=== PATIENT | male | born 1955 | race Caucasian/White ===

== ENCOUNTER 2020-11-13 18:34 | Emergency (ER) | payer BC, SELFPAY ==
[2020-11-13 18:35] VITALS: BP 155/97; PULSE 97; RESP 20; TEMP 36; O2SAT 97; BMI 30.8
[2020-11-13 18:39] VITALS: BMI 25.8
--- NOTE | 2020-11-13 18:39 | XR_ITS ---
PROCEDURE: XR HAND RT MIN 3V CLINICAL INDICATION: injury Pain COMPARISON: No exams were available for comparison FINDINGS: There is a nondisplaced fracture involving distal shaft of the 5th metacarpal with minimal radial angulation of the distal fracture fragment. The joint spaces are well-preserved. No significant degenerative/arthritic changes. No erosive changes evident. 8 mm lucent lesion is present involving the distal phalanx of the thumb along the volar and medial aspect with osteoarthritic change of the interphalangeal joint. IMPRESSION: 1. Nondisplaced fracture 5th metacarpal 2. Cystic lesion of the distal phalanx of the thumb. Follow-up suggested to confirm stability Dictated by: Denny Bliss MD 11/14/2020 05:38 Denny Bliss MD in [place] 11/14/2020 05:38
--- NOTE | 2020-11-13 18:57 | HMH.EDUTC ---
[facility] [place] Disposition Clinical Impression: Fracture of fifth metacarpal bone Qualifiers: Encounter type: initial encounter Fracture type: closed Metacarpal location: unspecified portion of metacarpal Fracture alignment: nondisplaced Laterality: right Qualified Code(s): S62.306A - Unspecified fracture of fifth metacarpal bone, right hand, initial encounter for closed fracture Disposition: Home, Self-Care Condition on Discharge: Good Instructions: How To Perform RICE (Rest, Ice, Compress, Elevate), Ibuprofen Additional Instructions: *RICE, Rest the extremity, Ice 15-20 minutes 3-4 times daily, Compress- wear the justin wrap as discussed as much as possible to help reduce swelling and pain, Elevate the extremity when at rest * is for support and help control swelling, use it except in the shower. Be sure that is not to tight but not to loose either *Elevate when resting *Ibuprofen 600-800mg every 6-8 hours as needed for pain an inflammation. If need something more can take Tylenol in between doses of Ibuprofen to help Immediately follow up with your family doctor for new or worsening of symptoms, or no noticeable improvement over the next 3-5 days Prescriptions: Ibuprofen [Ibuprofen 800mg Tablet] 800 mg PO TIDP PRN #30 tab PRN Reason: Moderate Pain Transmission Status: Pending to [facility] Referrals: PCP,No [Primary Care Provider] - As needed David Pierce MD [Staff Physician] - As needed (Call tomorrow for appointment) Time of Disposition: 20:01 Medical Decision Making - Nico Inquiry Pt receiving controlled substance: No Nico was queried for this patient: No Vital Signs: 11/13/20 18:35 Temperature 96.8 F L Temperature Source Temporal Artery Scan Pulse Rate [Left Brachial] 97 H Respiratory Rate 20 Blood Pressure [Left Arm] 155/97 H Blood Pressure Mean [Left Arm] 116 Blood Pressure Source [Left Arm] Automatic Cuff Blood Pressure Position [Left Arm] Sitting 02 Sat by Pulse Oximetry 97 Oxygen Delivery Method Room Air Orders (Tests/Meds): ORDERS Category Date Time Status Hand XR right minimum 3 views [XR hand RT min 3V] Stat Exams 11/13/20 18:39 Taken - Radiology Data #1 Image(s): Hand Image Reviewed: Yes I reviewed the patient's radiology image Fracture in 5th metacarpal - Physician Consults Physician Consulted: Stan Time: 19:05 Reason -: Orthopedic Eval/Care Comment/Response: Dr Pierce paged awaiting call back, Spoke with Dr Pierce he advised ulnar gutter splint, RICE NSAids and call his office in the morning for appointment Medical Decision Narrative: Spoke with pharmacy about medication patient state that he has taken Ibuprofen without complications or reactions [facility] HPI - General Stated complaint: possibly dislocated/injured R hand Time Seen by Provider: 11/13/20 18:57 Mode of Arrival: Ambulatory Source of Information: Patient, Spouse Limitations: No Limitations Description of Symptoms (Recalled from Triage Doc. by RN): PATIENT C/O INJURY TO RIGHT HAND WHILE TRYING TO BREAK UP A FIGHT BETWEEN HIS 2 DOGS. 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[employer] HEENT Symptoms (Recalled from RN notes): No Resp Symptoms (Recalled from RN notes): No Skin Symptoms (Recalled from RN notes): No MS Symptoms (Recalled from RN notes): Yes Functional Status (Recalled from RN notes): WNL - History of Present Illness Provider Complaint: Patient states that he was trying to break up a fight between two of his dogs and he hit one of them with his right hand and felt a pop States that ever since he has been having pain in his hand and noticed it looked like he may have broke it so he came in - Related Data Home Medications Medication Instructions Recorded Confirmed Aspirin [Aspirin 81mg chewable 81 mg PO DAILY 11/13/20 11/13/20 tab] Metformin HCl [Metformin HCl ER] 500 mg PO BID 11/13/20 11/13/20 lisinopriL [Lisinopril] 10 mg PO DAILY 11/13/20 11/13/20 Previous Rx's Medi
--- NOTE | 2020-11-13 19:37 | PC.NURSE ---
AWAITING RETURN PAGE FROM DR. ADKINS
[2020-11-13 20:19] VITALS: BP 155/97; PULSE 97; RESP 20; TEMP 36; O2SAT 97
== END 2020-11-13 20:23 | disposition home or self-care (01) ==
PROVIDERS: Emergency Provider Nurse Practitioner
DX: S62.306A Unspecified fracture of fifth metacarpal bone, right hand, initial encounter for closed fracture (principal); I10 Essential (primary) hypertension; E11.9 Type 2 diabetes mellitus without complications; Z79.899 Other long term (current) drug therapy; W22.8XXA Striking against or struck by other objects, initial encounter; Y93.K9 Activity, other involving animal care; Y92.099 Unspecified place in other non-institutional residence as the place of occurrence of the external cause
CPT/HCPCS: 29125; 73130; 99203; G0463

== ENCOUNTER → 2020-11-19 11:05 | Outpatient (CLI) | payer BC, SELFPAY ==
--- NOTE | 2020-11-19 11:09 | XR_ITS ---
PROCEDURE: XR HAND RT MIN 3V CLINICAL INDICATION: boxer fracture Follow-up fracture COMPARISON: CR XR HAND RT MIN 3V from 11/13/2020 FINDINGS: Nondisplaced fracture involves the distal shaft of the 5th metacarpal without significant displacement. There is minimal radial angulation of the distal fracture fragment. A splint is present medially. IMPRESSION: Nondisplaced 5th metacarpal fracture status post splinting Dictated by: Denny Bliss MD 11/19/2020 15:18 Denny Bliss MD in [place] 11/19/2020 15:18
== END ==
PROVIDERS: PCP Internal Medicine; Visit Provider Orthopaedic Surgery
DX: S62.308A Unspecified fracture of other metacarpal bone, initial encounter for closed fracture (principal)
CPT/HCPCS: 73130

== ENCOUNTER → 2020-12-03 13:59 | Outpatient (CLI) | payer BC, SELFPAY ==
--- NOTE | 2020-12-03 14:02 | XR_ITS ---
PROCEDURE: XR HAND RT MIN 3V CLINICAL INDICATION: boxer fracture COMPARISON: CR XR HAND RT MIN 3V from 11/13/2020 CR XR HAND RT MIN 3V from 11/19/2020 FINDINGS: Mildly displaced and angulated fracture of the distal diaphysis of the 5th metacarpal is again noted, demonstrates minor adjacent callus formation consistent with healing. Minor associated soft tissue swelling is noted. No other acute fractures or dislocations. Bone density is normal. Minor soft tissue swelling on the ulnar aspect of the hand. IMPRESSION: Healing fracture of the 5th metacarpal. Dictated by: Felicita Pierce 12/03/2020 16:02 Felicita Pierce in [place] 12/03/2020 16:02
== END ==
PROVIDERS: PCP Internal Medicine; Visit Provider Orthopaedic Surgery
DX: S62.306A Unspecified fracture of fifth metacarpal bone, right hand, initial encounter for closed fracture (principal)
CPT/HCPCS: 73130

== ENCOUNTER 2023-01-22 06:01 | Emergency (ER) | payer MEDICARE, SELFPAY ==
[2023-01-22 06:10] VITALS: BP 164/82; PULSE 95; RESP 24; TEMP 36.4; O2SAT 97; BMI 31.8
[2023-01-22 06:14] VITALS: BMI 31.8
--- NOTE | 2023-01-22 06:14 | CT_ITS ---
FINAL REPORT TECHNIQUE: Axial CT images of the abdomen and pelvis were obtained without intravenous contrast. Coronal reformatted images were also obtained.This study was performed with techniques to keep radiation doses as low as reasonably achievable (ALARA). Individualized dose reduction techniques using automated exposure control or adjustment of mA and/or kV according to the patient's size were employed. CLINICAL HISTORY: Diffuse abdominal pain COMPARISON: None FINDINGS: Abdomen: Mild right lung base opacities are likely inflammatory and may represent pneumonia or mycobacterial/fungal disease. No evidence of renal stone. There is mild left hydronephrosis and hydroureter. The liver, spleen and pancreas have an unremarkable, unenhanced appearance. No mass or adenopathy is seen. No inflammatory process is identified. Pelvis: The appendix is normal. There are moderate vascular calcifications. Sigmoid diverticulosis is noted. There is mild left hydroureter secondary to a 2 mm left UVJ stone. No mass or abnormal fluid collection is identified. Bilateral L5 pars defects are present. IMPRESSION: Mild left ureter secondary to 2 mm left UVJ stone. Right lung base opacities are likely inflammatory. Sigmoid diverticulosis. Reviewed, Interpreted and Dictated by Antonio Driver III, MD Transcribed by Christelle Montero Authenticated and . [facility]
[2023-01-22 06:25] LABS: Basophils # 0.1 K/mm3 (0-0.2); Basophils % 0.9 % (0.1-2.0); Eosinophils # 0.6 K/mm3 (0.0-0.4); Eosinophils % 5.3 % (0.1-12.0); Hematocrit 50.7 % (42.0-52.0); Hemoglobin 16.7 g/dL (14.1-18.0); Lymphocytes # 2.8 K/mm3 (0.7-4.5); Lymphocytes % 26.6 % (10-50); Mean Corpuscular Hemoglobin 30.8 pg (27.0-31.2); Mean Corpuscular Volume 93.4 fl (80-94); Monocytes % 9.4 % (1.7-9.3); Neutrophils # 6.1 K/mm3 (1.8-7.8); Neutrophils % 57.8 % (37.0-80.0); Platelet Count 256 K/mm3 (142-424); Red Blood Count 5.42 M/mm3 (4.60-6.20); Red Cell Distribution Width 13.5 % (11.5-17.5); White Blood Count 10.6 K/mm3 (4.8-10.8)
[2023-01-22 06:32] LABS: Alanine Aminotransferase 25 U/L (12-78); Albumin Level 4.2 g/dl (3.5-5.0); Albumin/Globulin Ratio 1.3 (1.1-1.8); Alkaline Phosphatase 86 U/L (38-126); Aspartate Amino Transferase 27 U/L (17-59); Bilirubin,Total 0.6 mg/dl (0.2-1.3); Blood Urea Nitrogen 17 mg/dl (9-20); Carbon Dioxide 23 mmol/L (22.0-30.0); Chloride 97 mmol/L (98-107); Creatinine Clearance Estimated 111 mL/min (50-200); Estimated Glomerular Filt Rate 97 ml/min (>60); GFR (African American) 117 ML/MIN (>60); Globulin 3.3 g/dL (1.3-3.2); Glucose 272 mg/dl (74-100); Sodium 135 mmol/L (136-145); Total Protein,Serum 7.5 g/dl (6.3-8.2)
[2023-01-22 06:37] LABS: C-Reactive Protein 6.4 mg/L (0-4)
[2023-01-22 06:41] VITALS: BP 165/85; PULSE 84; O2SAT 96
[2023-01-22 06:51] LABS: Procalcitonin 0.055 ng/mL (0.0-2.0)
[2023-01-22 06:54] LABS: Erythrocyte Sedimentation Rate 11 mm/hr (0-20)
--- NOTE | 2023-01-22 06:57 | HMH.EDABDPAI ---
Discharge Plan Disposition Patient Disposition: Home, Self-Care Prescriptions Prescriptions: New tamsulosin [Flomax] 0.4 mg capsule 0.4 mg PO DAILY Qty: 10 0RF Referrals Follow up/Referrals: Brent Maharaj [Primary Care Provider] - See instructions Eliazar Guajardo MD [Referring] - See instructions Clinical Impressions Clinical Impression: Renal colic on left side Instructions Patient Instructions: DI for Kidney Stones Discharge ED Provider: Jesus Manuel (ED),[place] Abdominal Pain HPI General Chief Complaint: Abdominal Pain Stated Complaint: abdominal pain Time Seen by Provider: 01/22/23 06:15 Mode of Arrival: Family Vehicle Source of Information: Patient, Spouse and Medical Record Limitations: No Limitations Description of Symptoms (Recalled from ER Triage Doc. by RN): 67 yo male presents with cc of left side abd pain with radiation down into groin on left side. Patient states he got up around 0430 to void and after returning to bed and laying down, had immediate pain began in that area. History of kidney stones, however states it has been several years. states he had nausea and vomiting a couple of times while en route to the hospital. Afebrile. Denies dyspnea, denies chest pain. No other complaints offered. History of Present Illness HPI narrative: acute onset of lt sided pain with hx of kidney stones with n/v MD complaint: abdominal pain Onset (ago): hour(s) Consistency: colicky Location: L flank Severity: severe Associated symptoms: nausea and vomiting Related Data Previous Rx's Medication Instructions Recorded tamsulosin 0.4 mg capsule (Flomax) 0.4 mg PO DAILY #10 caps 01/22/23 Allergies Allergy/AdvReac Type Severity Reaction Status Date / Time No Known Allergies Allergy Verified 12/03/20 14:22 [facility] Disclaimer: The information contained in this section may have been updated after the patient was seen, as this information can be updated by other users. Social History Smoking Status: Current every day smoker alcohol intake: never current occupational status: other Travel in the last 8 weeks: None ROS Obtained: Yes All systems reviewed & no additional complaints except as documented Physical Exam General General appearance: alert Head Head exam: normocephalic Eye Eye exam: Present PERRL and EOMI ENT ENT exam: Present mucous membranes moist Neck Neck exam: Present trachea midline Respiratory Respiratory exam: Absent respiratory distress Cardiovascular Cardiovascular exam: Present regular rate Abdominal Exam Abdominal exam: Present soft and tenderness; Absent guarding Abdominal tenderness: Present LLQ and moderate Extremities Exam Extremities exam: Present full ROM Back Exam Back exam: Present CVA tenderness (L) Neurological Exam Neurological exam: Present alert, oriented X3 and CN II-XII intact; Absent motor sensory deficit Psychiatric Psychiatric exam: Present normal affect Skin Skin exam: Absent rash Medical Decision Making Medical Records Medical records reviewed: Yes I reviewed the patient's medical records. Nico Inquiry Pt receiving controlled substance: No Vital Signs: 01/22/23 06:10 01/22/23 06:41 Temperature 97.5 F L Temperature Source Oral Pulse Rate 84 Pulse Rate [Right Brachial] 95 H Respiratory Rate 24 Blood Pressure 165/85 H Blood Pressure [Right Arm] 164/82 H Blood Pressure Mean [Right Arm] 109 Blood Pressure Source [Right Arm] Automatic Cuff Blood Pressure Position [Right Arm] Sitting 02 Sat by Pulse Oximetry 97 96 Oxygen Delivery Method Room Air Room Air Lab Data Lab results reviewed: Yes I reviewed the patient's lab results. Lab Results 01/22/23 06:07: WBC 10.6, RBC 5.42, Hgb 16.7, Hct 50.7, MCV 93.4, MCH 30.8, MCHC 33.0, RDW 13.5, Plt Count 256, MPV 9.0, Neut % (Auto) 57.8, Lymph % (Auto) 26.6, Buchanan % (Auto) 9.4 H, Eos % (Auto) 5.3, Baso % (Auto) 0.9, Neut # (Auto) 6.1, Lymph # (Auto) 2.8, Buchanan # (A
[2023-01-22 08:00] VITALS: BP 131/70; PULSE 82; RESP 20; O2SAT 96
[2023-01-22 08:30] VITALS: BP 141/78; PULSE 84; RESP 20; O2SAT 96
[2023-01-22 08:50] VITALS: BP 141/78; PULSE 78; RESP 18; TEMP 36.4; O2SAT 97
== END 2023-01-22 08:51 | disposition home or self-care (01) ==
PROVIDERS: Emergency Provider Emergency Medicine; PCP Internal Medicine
DX: N23 Unspecified renal colic (principal); R11.2 Nausea with vomiting, unspecified; F17.200 Nicotine dependence, unspecified, uncomplicated
CPT/HCPCS: 74176; 80053; 84145; 85025; 85651; 86140; 96361; 96374; 96375; 99285; J2405

== ENCOUNTER 2024-02-16 07:18 | Outpatient (CLI) | payer MEDICARE, SELFPAY ==
--- NOTE | 2024-02-16 07:21 | CT_ITS ---
FINAL REPORT TECHNIQUE: Thin section axial images were obtained from the lung apices to the upper abdomen by computed tomography. Reformatted images were obtained and reviewed. This study was performed with techniques to keep radiation doses al low as reasonably achievable (ALARA). Individualized dose reduction techniques using automated exposure control or adjustment of mA and/or kV according to the patient's size were employed. CLINICAL HISTORY: H/O TOBACCO USE, current smoker, 2ppd 54 years COMPARISON: None FINDINGS: CHEST CT LOW DOSE CTDI vol (mGy): 2.90 DLP (mGy-cm): 109.94 There is no axillary adenopathy. There is no mediastinal or hilar mass or adenopathy. The heart is normal in size. Mild coronary artery calcifications are noted. There is no pericardial or pleural effusion. There is mild emphysema and mild pulmonary scarring. Lung window images demonstrate no suspicious infiltrate or nodule. There is a calcified granuloma in the left upper lobe. Limited images of the upper abdomen are unremarkable. IMPRESSION: Lung-RADS category 1. Recommend 12 month follow up low dose chest CT. Reviewed, Interpreted and Dictated by Antonio Driver III, MD Transcribed by Christelle Montero Authenticated and . [facility]
== END 2024-02-16 23:59 | disposition home or self-care (01) ==
LOC: RAD 07:19
PROVIDERS: PCP Nurse Practitioner; Visit Provider Nurse Practitioner
DX: F17.210 Nicotine dependence, cigarettes, uncomplicated (principal)
CPT/HCPCS: 71271

== ENCOUNTER 2024-02-21 08:11 | Outpatient (CLI) | payer MEDICARE, SELFPAY ==
--- NOTE | 2024-02-21 08:17 | MR_ITS ---
FINAL REPORT CLINICAL HISTORY: ABNORMAL TUMOR MARKERS. COMPARISON: 01/22/2023 FINDINGS: Multiplanar MR imaging of the abdomen was performed using the MRCP protocol. 3-D images were also obtained and reviewed.There is no evidence of biliary ductal dilatation. No filling defect is seen within the biliary system to suggest a bile duct stone. No stricture is identified. No abnormality is identified of the gallbladder. The pancreatic duct is only partially visualized secondary to its normal small caliber. Review of the remainder of the abdomen reveals no evidence of mass or adenopathy. No abnormal fluid collection is seen. IMPRESSION: Unremarkable biliary system without evidence of bile duct stone or stricture. No mass or abnormal fluid collection. Reviewed, Interpreted and Dictated by Michelle Sommers MD Transcribed by Sharonda Wright Authenticated and [facility]
== END 2024-02-21 23:59 | disposition home or self-care (01) ==
LOC: RAD 08:12
PROVIDERS: PCP Nurse Practitioner; Visit Provider Nurse Practitioner
DX: R97.8 Other abnormal tumor markers (principal)
CPT/HCPCS: 74181; 76376

== ENCOUNTER 2024-06-23 20:33 | Emergency (ER) | payer MEDICARE, SELFPAY ==
[2024-06-23 20:44] VITALS: BP 150/88; PULSE 108; RESP 20; TEMP 36.4; O2SAT 97; BMI 26.0
--- NOTE | 2024-06-23 20:47 | CT_ITS ---
PROCEDURE INFORMATION: Exam: CTA Chest With Contrast Exam date and time: 06/23/2024 9:38 PM Age: 69 years old Clinical indication: Other: Severe R sided neck pain; Additional info: Severe R sided neck pain, no trauma TECHNIQUE: Imaging protocol: Computed tomographic angiography of the chest with contrast. Exam focused on the arteries. 3D rendering (Not supervised by radiologist): MIP and/or 3D reconstructed images were created by the technologist. Radiation optimization: All CT scans at this facility use at least one of these dose optimization techniques: automated exposure control; mA and/or kV adjustment per patient size (includes targeted exams where dose is matched to clinical indication); or iterative reconstruction. Contrast material: ISOUVE 370; Contrast volume: 80 ml; Contrast route: INTRAVENOUS (IV); COMPARISON: 1. CT LUNG SCREENING 02/16/2024 7:[address] SOFT TISSUE NECK W CON 06/23/2024 9:[address] THORACIC SPINE WO CON 06/23/2024 9:32 PM FINDINGS: Pulmonary arteries: There is dilation of the main pulmonary artery as well as the major branch pulmonary arteries. This may reflect underlying pulmonary hypertension. There is no evidence for clinically relevant pulmonary arterial filling defect. Tiny distal filling defects may be present but are of dubious clinical significance. Aorta: There is atherosclerotic disease of the visualized aorta and its major branch vessels. Lungs: Scattered areas of bronchial wall thickening which are likely chronic inflammatory. A few areas of subpleural reticulation are noted, nonspecific. There are parenchymal consolidations in the lower lobes, [id number]-left, for which may reflect infection. Pleural spaces: Unremarkable. No pneumothorax. No pleural effusion. Heart: Unremarkable. No cardiomegaly. No pericardial effusion. Coronary arteries: There is mild coronary atherosclerotic disease/calcification although evaluation is limited secondary to the non gated nature of the study. Lymph nodes: There are mildly prominent mediastinal lymph nodes which are nonenlarged. Spleen: There are multiple calcifications in the spleen most likely reflects small granulomas. Bones/joints: There is diffuse degenerative disease of the visualized osseous structures. Please see the dedicated interpretation of the spine for findings in that region. There is exaggeration of the spinal curvature. Soft tissues: Unremarkable. IMPRESSION: 1. There are parenchymal consolidations in the lower lobes, [id number]-left, which may reflect infection. 2. Findings which suggest underlying pulmonary arterial hypertension. 3. No evidence for clinically relevant pulmonary arterial filling defect.
--- NOTE | 2024-06-23 20:47 | CT_ITS ---
PROCEDURE INFORMATION: Exam: CT Neck With Contrast Exam date and time: 06/23/2024 9:35 PM Age: 69 years old Clinical indication: Neck pain; Additional info: Severe R sided neck pain, no trauma TECHNIQUE: Imaging protocol: Computed tomography of the neck with contrast. Radiation optimization: All CT scans at this facility use at least one of these dose optimization techniques: automated exposure control; mA and/or kV adjustment per patient size (includes targeted exams where dose is matched to clinical indication); or iterative reconstruction. Contrast material: ISOVUE; Contrast volume: 75 ml; Contrast route: IV; COMPARISON: CT CERVICAL SPINE WO CON 06/23/2024 9:22 PM FINDINGS: Paranasal sinuses: There is diffuse paranasal sinus disease. There is moderate mucosal thickening in the left maxillary sinus. There is mild opacification in the ethmoid air cells, left more than right. There is mild mucosal thickening in the remaining paranasal sinuses. The nasal septum is slightly deviated to the right. Salivary glands: Glands are normal in size. Teeth: The patient is edentulous. Pharynx: Unremarkable. No significant tonsillar enlargement. Prevertebral and retropharyngeal spaces: Unremarkable. Larynx: Unremarkable. Epiglottis is normal. Thyroid: No enlarged or calcified nodules. Trachea: Visualized trachea is unremarkable. Lungs: There is paraseptal emphysema and apical scarring. There is mild background centrilobular emphysema. There is a calcified granuloma in the left lung apex. Lymph nodes: There are scattered cervical lymph nodes which are nonspecific and are not enlarged by CT size criteria. Vasculature: There are atherosclerotic calcifications of the carotid siphons. Bones/joints: There are degenerative changes of the temporomandibular joints. Multilevel degenerative disc and joint disease of the cervical spine are detailed on the concurrent, separately dictated CT of the cervical spine from the same day. Soft tissues: Unremarkable. No significant soft tissue swelling. IMPRESSION: 1. There is no mass in the neck. 2. There is no cervical lymphadenopathy by CT size criteria. 3. Paranasal sinus disease. 4. Scattered small cervical lymph nodes are nonspecific.
--- NOTE | 2024-06-23 20:47 | CT_ITS ---
PROCEDURE INFORMATION: Exam: CT Thoracic Spine Without Contrast Exam date and time: 06/23/2024 9:32 PM Age: 69 years old Clinical indication: Other: Severe R sided neck pain; Additional info: Severe R sided neck pain, no trauma TECHNIQUE: Imaging protocol: Computed tomography of the thoracic spine without contrast. Radiation optimization: All CT scans at this facility use at least one of these dose optimization techniques: automated exposure control; mA and/or kV adjustment per patient size (includes targeted exams where dose is matched to clinical indication); or iterative reconstruction. COMPARISON: 1. CT CERVICAL SPINE WO CON 06/23/2024 9:22 PM 2. MR ABDOMEN WO CON 02/21/2024 8:30 AM FINDINGS: Bones/joints: There is exaggeration of the spinal curvature. No evidence of acute spondylolisthesis or vertebral subluxation. Vertebral body heights are generally preserved, but some endplate sclerosis and anterior osteophytes are noted at multiple levels. Narrowing of multiple intervertebral disc spaces observed, indicative of degenerative disc disease. Hypertrophic changes are seen in the facet joints, consistent with osteoarthritis. No fractures or bony lesions identified. No abnormalities seen in adjacent osseous structures. Soft tissues: Unremarkable. Other findings: No obvious abnormalities seen in the prevertebral and paravertebral soft tissues. Please see the dedicated interpretation of the thorax for findings in that region. IMPRESSION: 1. Degenerative changes without acute abnormality detected. 2. Please see the dedicated interpretation of the thorax for findings in that region. 3. If clinical concern persists, MRI would be suggested.
--- NOTE | 2024-06-23 20:47 | CT_ITS ---
PROCEDURE INFORMATION: Exam: CT Cervical Spine Without Contrast Exam date and time: 06/23/2024 9:22 PM Age: 69 years old Clinical indication: Neck pain; Additional info: Severe R sided neck pain, no trauma TECHNIQUE: Imaging protocol: Computed tomography of the cervical spine without contrast. Radiation optimization: All CT scans at this facility use at least one of these dose optimization techniques: automated exposure control; mA and/or kV adjustment per patient size (includes targeted exams where dose is matched to clinical indication); or iterative reconstruction. COMPARISON: CT CERVICAL SPINE WO CON 06/23/2024 9:22 PM FINDINGS: Bones: Shallow levocurvature of the lower cervical spine. The alignment is otherwise maintained. Other than osteoarthritis of the middle atlantoaxial joint, the craniocervical junction is maintained. There are multilevel degenerative disc disease, worse at C5-C6 where there is decreased disc space height, and disc osteophyte complex. Small focus of calcification in the nuchal ligament and a tiny focus of calcification adjacent to the spinous process of C6 vertebral body, likely representing a small ossicle. The vertebral body heights are maintained. No evidence for acute fractures. At C2-C3: Minimal disc bulge. No high-grade spinal canal stenosis. Bilateral facet arthropathy and uncovertebral hypertrophy. Moderate right and mild left neural foraminal stenosis. At C3-C4: Diffuse disc bulge. No high-grade spinal canal stenosis. Advanced right and mild left facet arthropathy and uncovertebral hypertrophy. Severe right and mild left neural foraminal stenosis. At C4-C5: Mild disc bulge. Mild facet arthrosis and uncovertebral hypertrophy. Mild left neural foraminal stenosis. At C5-C6: Mild disc bulge. Mild facet arthropathy and uncovertebral hypertrophy. Mild right neural foraminal stenosis. At C6-C7: Diffuse disc bulge/disc osteophyte complex. Moderate spinal canal stenosis. Bilateral facet arthropathy and uncovertebral hypertrophy. Severe bilateral neural foraminal stenosis. At C7-T1: Mild disc bulge. No high-grade spinal canal stenosis. Bilateral facet arthrosis and uncovertebral hypertrophy. No high-grade neural foramina stenosis. Mastoid air cells: There are scattered ossification in the dependent left mastoid air cells. Small volume opacity in the external auditory canals, likely small amount of cerumen. Lungs: Paraseptal emphysema and lung scarring are noted. Vasculature: There are atherosclerotic calcifications of the carotid bifurcations. Soft tissues: No significant focal soft tissue abnormalities identified. IMPRESSION: 1. No evidence of acute fracture or traumatic malalignment in the cervical spine. 2. Multilevel degenerative disc and joint disease as detailed level by level above, worst at C6-C7 where there is at up to moderate spinal canal stenosis and severe bilateral neural foraminal stenosis as outlined.
--- NOTE | 2024-06-23 20:55 | HMH.EDGENADL ---
Discharge Plan Disposition Patient Disposition: Home, Self-Care Condition: Good Prescriptions Prescriptions: New ketorolac 10 mg tablet 10 mg PO Q8H PRN (Reason: pain) 3 Days Qty: 12 0RF methocarbamol 750 mg tablet 750 mg PO Q8H PRN (Reason: pain) Qty: 20 0RF No Action oxycodone-acetaminophen [Percocet] 10-325 mg tablet 1 tab PO Q6H PRN (Reason: pain) Qty: 15 0RF tamsulosin [Flomax] 0.4 mg capsule 0.4 mg PO DAILY Qty: 10 0RF Referrals Follow up/Referrals: Vandana Blake APRN [Primary Care Provider] - See instructions Activity Restrictions/Add. Instructions Additional Instructions/Restrictions: You were evaluated in the emergency department today. At this time, your workup is reassuring. Please follow-up closely with your primary care provider over the next 3 days for reassessment. Return to the emergency department for new or worsening symptoms Clinical Impressions Clinical Impression: Muscle spasms of neck Stand Alone Forms Stand Alone Forms: Work/School Release Instructions Patient Instructions: DI for Neck Pain Print Language Print Language: Stateless Discharge ED Provider: Suzan Reid General Adult HPI General Chief complaint: PAIN Stated complaint: right shoulder pain,no injury Time Seen by Provider: 06/23/24 20:41 Mode of Arrival: Ambulatory Source of Information: Patient and Spouse Limitations: No Limitations Description of Symptoms (Recalled from ER Triage Doc. by RN): pt reports right sided neck pain that radiates into the right shoulder without any injury, the pain began yesterday. pt reports this happened last month as well but the pain was relieved with taking a musle relaxer and ibuprofen, pt reports that has not helped this time. pt reports pain is improved when applying pressure to the arm History of Present Illness HPI narrative: This patient is a 69-year-old male who reports history of having skin cancer removed from his right shoulder in the past presenting to the emergency department for evaluation with concern for significant right shoulder and neck pain that started yesterday. No known accident or injury. He notes he had been doing a lot of overhead work but states this is not outside of the norm for him. He notes this happened a month ago but the pain went away with muscle relaxers and steroids, however this is not helping this time. He denies any headache, vision changes, numbness, tingling, unilateral weakness, arm mobility issues, chest pain, or shortness of breath. He has tried muscle relaxers and ibuprofen with no relief. Related Data Previous Rx's ?Medication ?Instructions ?Recorded oxycodone-acetaminophen 10 mg-325 1 tab PO Q6H PRN pain #15 tabs 01/22/23 mg tablet (Percocet) tamsulosin 0.4 mg capsule (Flomax) 0.4 mg PO DAILY #10 caps 01/22/23 ketorolac 10 mg tablet 10 mg PO Q8H PRN pain 3 days #12 06/23/24 tabs methocarbamol 750 mg tablet 750 mg PO Q8H PRN pain #20 tabs 06/23/24 Allergies Allergy/AdvReac Type Severity Reaction Status Date / Time No Known Allergies Allergy Verified 12/03/20 14:22 [facility] Disclaimer: The information contained in this section may have been updated after the patient was seen, as this information can be updated by other users. Social History Smoking Status: Current every day smoker alcohol intake: never current occupational status: other Travel in the last 8 weeks: None Other Medical History Have you received the Pneumonia Vaccine: No ROS Obtained: Yes All systems reviewed & no additional complaints except as documented Physical Exam General General appearance: alert and in no apparent distress Head Head exam: atraumatic and normocephalic Eye Eye exam: Present normal appearance, PERRL and EOMI ENT ENT exam: Present normal exam, normal oropharynx, mucous membranes moist and normal external ear exam Neck Neck exam: Present normal inspection, full ROM and trachea midline; Absent tenderness Chest Chest inspection: Present normal inspection and symmetric chest wall rise; Absent tenderness Respiratory Respiratory exam: Present normal lung sounds bilaterally; Absent respiratory distress, wheezes, stridor or accessory muscle use Cardiovascular Cardiovascular exam: Present regular rate and normal rhythm Abdominal Exam Abdominal exam: Present soft; Absent distention, tenderness or guarding Extremities Exam Extremities exam: Present normal inspection, full ROM and normal capillary refill; Absent tenderness or edema Back Exam Back exam: Present full ROM, tenderness, muscle spasm and paraspinal tenderness; Absent vertebral tenderness Back 1 view image: 1. Tenderness to palpation Neurological Exam Neurological exam: Present alert, oriented X3, CN II-XII intact and normal gait; Absent motor sensory deficit Psychiatric Psychiatric exam: Present normal affect and normal mood Skin Skin exam: Present warm and dry Medical Decision Making Medical Records Medical records reviewed: Yes I reviewed the patient's medical records. Screening: Per USPSTF and CDC recommendations, given the prevalence of disease in our region, it is our hospital?s policy to screen for HIV and viral Hepatitis for all patients aged 18 and over and those with ongoing risk factors. Nico Inquiry Pt receiving controlled substance: No Vital Signs: 06/23/24 20:44 06/23/24 22:00 Temperature 97.6 F Temperature Source Oral Pulse Rate 93 H Pulse Rate [Right] 108 H Respiratory Rate 20 Blood Pressure 145/88 H Blood Pressure [Right Arm] 150/88 H Blood Pressure Mean [Right Arm] 108 02 Sat by Pulse Oximetry 97 96 Oxygen Delivery Method Room Air Lab Data Lab results reviewed: Yes I reviewed the patient's lab results. Lab Results 06/23/24 20:50: WBC 10.8, RBC 5.19, Hgb 16.4, Hct 47.7, MCV 91.9, MCH 31.6 H, MCHC 34.4, RDW 13.9, Plt Count 247, MPV 8.6, Neut % (Auto) 89.4 H, Lymph % (Auto) 6.2 L, [place] % (Auto) 3.7, Eos % (Auto) 0.3, Baso % (Auto) 0.4, Neut # (Auto) 9.6 H, Lymph # (Auto) 0.7, [place] # (Auto) 0.4, Eos # (Auto) 0.0, Baso # (Auto) 0.0, Total Counted 100, Neutrophils % (Manual) 94 H, Lymphocytes % (Manual) 4 L, Monocytes % (Manual) 2, Platelet Estimate Normal, Giant Platelets 1+, RBC Morphology Normal, Sodium 134 L, Potassium 4.5, Chloride 101, Carbon Dioxide 26, Anion Gap 11.5, BUN 14, Creatinine 0.80, Estimated Creat Clear 93, Estimated GFR 96, Est GFR ( Amer) 117, Glucose 330 H, Calcium 9.5, Total Bilirubin 0.5, AST 24, ALT 25, Alkaline Phosphatase 77, Troponin I < 0.01, Total Protein 7.8, Albumin 4.4, Globulin 3.4 H, Albumin/Globulin Ratio 1.3 06/23/24 20:50 06/23/24 20:50 Orders (Tests/Meds): ED MEDICATIONS Generic Name Dose Route Start Last Admin Trade Name Juan PRN Reason Stop Dose Admin Sodium Chloride 10 ml 06/23/24 21:44 06/23/24 21:45 Sodium Chloride 0.9% 10ml Syr (Rad Only) IV 07/23/24 21:43 10 ml NEEDED PRN Administration Maintain IV Site Discontinued Medications Generic Name Dose Route Start Last Admin Trade Name Juan PRN Reason Stop Dose Admin Acetaminophen 1,000 mg 06/23/24 20:48 06/23/24 21:07 Acetaminophen 500mg Tab PO 06/23/24 20:49 1,000 mg ONCE ONE Administration Diazepam 5 mg 06/23/24 20:48 06/23/24 21:07 Diazepam 10mg/2ml Syringe IV 06/23/24 20:49 5 mg ONCE ONE Administration Iopamidol 155 ml 06/23/24 21:44 06/23/24 21:45 Iopamidol-370 (76%);100ml Bottle IV 06/23/24 21:45 155 ml ONCE ONE Administration Ketorolac Tromethamine 15 mg 06/23/24 20:48 06/23/24 21:07 Ketorolac 30mg/Ml Vial IV 06/23/24 20:49 15 mg ONCE ONE Administration Lidocaine 1 each 06/23/24 20:48 06/23/24 21:07 Lidocaine 5% Transdermal Patch TP 06/23/24 20:49 1 each ONCE ONE Administration Sodium Chloride 50 ml 06/23/24 21:44 06/23/24 21:45 0.9 % Sodium Chloride 50 Ml Vial IV 06/23/24 21:45 50 ml ONCE ONE Administration ORDERS Category Date Time Status CT cervical spine wo con Stat Cat Scan 06/23/24 20:[address] soft tissue neck w con Stat Cat Scan 06/23/24 20:[address] thoracic spine wo con Stat Cat Scan 06/23/24 20:47 Completed CTA Chest [CT angio chest - dissection] Stat Cat Scan 06/23/24 20:47 Completed Complete Blood Count Auto Diff Stat Lab 06/23/24 20:50 Completed Comprehensive Metabolic Panel Stat Lab 06/23/24 20:50 Completed Trop I [Troponin I] Stat Lab 06/23/24 20:50 Completed Troponin I Q3H Lab 06/23/24 23:47 Ordered Troponin I Q3H Lab 06/24/24 02:47 Ordered ECG Data Tracing #1: I reviewed this ECG and interpreted as documented below: Normal sinus rhythm ventricular rate of [address] changes concerning for ischemia. Normal axis and intervals ECG initial impression date: 06/23/24 ECG initial impression time: 21:14 Medical Decision Narrative: In summary, this patient is a 69-year-old male presenting to the Emergency Department for evaluation of right shoulder and neck pain that is atraumatic. Differential diagnoses considered include but are not limited to musculoskeletal strain/sprain, muscle spasm, mass, malignancy, fracture, vascular pathology. Ruling out the most morbid conditions drove assessment. It should be noted patient's history includes extensive smoking history which is not at goal therapy. This complicates all aspects of care by increasing patient's risk for morbidity. On exam, the patient is very uncomfortable appearing. He has tenderness to palpation over the right paraspinal muscles of his neck and upper back. He is neurologically intact and neurovascularly intact in his extremities. It is likely this is just musculoskeletal strain/sprain, however given the patient's history of having a skin cancer removed in this region as well as assistance of smoking history, CT scans were obtained to evaluate for other acute pathology such as masses. I also obtain basic lab evaluation. Patient was given IV Valium, Toradol, oral Tylenol, and topical Lidoderm patch for symptomatic improvement of pain. On reassessment with the patient is resting comfortably with resolved symptoms. He is feeling a lot better. CT scans do not demonstrate any acutely concerning abnormalities. He has some mild consolidation at the bases but no symptoms of pneumonia. He also has nonspecific scattered cervical lymphadenopathy but no unilateral findings concerning for acute issue. I advised that he follow-up closely outpatient for reassessment. At this time, I feel it is appropriate for discharge home with prescriptions for muscle relaxers and anti-inflammatories to treat symptoms. He was given strict return precautions and was discharged after all questions were answered. Critical Care Critical Care Time Critical Care Time: No
[2024-06-23] MEDS: KETOROLAC 30MG/ML VIAL 15 MG IV (21:07)
[2024-06-23] MEDS: ACETAMINOPHEN 500MG TAB 1000 MG PO (21:07)
[2024-06-23] MEDS: diazePAM 10MG/2ML SYRINGE 5 MG IV (21:07)
[2024-06-23] MEDS: LIDOCAINE 5% TRANSDERMAL PATCH 1 EACH TP (21:07)
--- NOTE | 2024-06-23 21:12 | ECG_ITS ---
APPROVED REPORT Exam: Resting ECG HR:96 bpm ECG Measurements Heart Rate 96 AXES NJ 135 P 54 QRSd 86 QRS 84 QT 342 T 73 QTc 396 Conclusion SINUS RHYTHM NORMAL ECG Electronically signed by : PAUL KOVACS, 06/23/2024 23:25:14
[2024-06-23 21:14] LABS: Albumin Level 4.4 g/dl (3.5-5.0); Chloride 101 mmol/L (98-107); Sodium 134 mmol/L (136-145)
[2024-06-23 21:15] LABS: Potassium 4.5 mmoL/L (3.5-5.1)
[2024-06-23 21:16] LABS: Basophils % 0.4 % (0.1-2.0); Eosinophils % 0.3 % (0.1-12.0); Hematocrit 47.7 % (42.0-52.0); Hemoglobin 16.4 g/dL (14.1-18.0); Lymphocytes # 0.7 K/mm3 (0.7-4.5); Lymphocytes % 6.2 % (10-50); Mean Corpuscular HGB Conc 34.4 g/dL (31.8-35.4); Mean Corpuscular Hemoglobin 31.6 pg (27.0-31.2); Mean Corpuscular Volume 91.9 fl (80-94); Mean Platelet Volume 8.6 fl (7.4-10.4); Monocytes # 0.4 K/mm3 (0.1-1.0); Monocytes % 3.7 % (1.7-9.3); Neutrophils # 9.6 K/mm3 (1.8-7.8); Neutrophils % 89.4 % (37.0-80.0); Platelet Count 247 K/mm3 (142-424); Red Blood Count 5.19 M/mm3 (4.60-6.20); Red Cell Distribution Width 13.9 % (11.5-17.5); White Blood Count 10.8 K/mm3 (4.8-10.8)
[2024-06-23 21:17] LABS: Alanine Aminotransferase 25 U/L (12-78); Anion Gap 11.5 mEq/L (5-15); Aspartate Amino Transferase 24 U/L (17-59); Blood Urea Nitrogen 14 mg/dl (9-20); Carbon Dioxide 26 mmol/L (22.0-30.0); Creatinine Clearance Estimated 93 mL/min (50-200); Estimated Glomerular Filt Rate 96 ml/min (>60); GFR (African American) 117 ML/MIN (>60)
[2024-06-23 21:18] LABS: Albumin/Globulin Ratio 1.3 (1.1-1.8); Alkaline Phosphatase 77 U/L (38-126); Bilirubin,Total 0.5 mg/dl (0.2-1.3); Calcium 9.5 mg/dl (8.4-10.2); Globulin 3.4 g/dL (1.3-3.2); Glucose 330 mg/dl (74-100); MANUAL DIFFERENTIAL MANUAL DIFFERENTIAL (MANUAL DIFF); Total Protein,Serum 7.8 g/dl (6.3-8.2)
[2024-06-23 21:30] LABS: Troponin I < 0.01 ng/ml (0.00-0.034)
[2024-06-23] MEDS: SODIUM CHLORIDE 0.9% 10ML SYR (RAD ONLY) 10 ML IV (21:45)
[2024-06-23] MEDS: IOPAMIDOL-370 (76%);100ML BOTTLE 155 ML IV (21:45)
[2024-06-23] MEDS: 0.9 % SODIUM CHLORIDE 50 ML VIAL IV (21:45)
[2024-06-23 22:00] VITALS: BP 145/88; PULSE 93; O2SAT 96
[2024-06-23 22:32] LABS: Lymphocytes % 4 % (10-50); Monocytes % 2 % (2-9); Neutrophils % 94 % (42-76); Total Cells Counted 100
[2024-06-23 22:38] LABS: Giant Platelets 1+; Platelet Estimate Normal; RBC Morphology Normal
[2024-06-23 23:20] VITALS: BP 144/89; PULSE 84; RESP 18; TEMP 36.4; O2SAT 96
== END 2024-06-23 23:22 | disposition home or self-care (01) ==
PROVIDERS: Emergency Provider Emergency Medicine; PCP Nurse Practitioner
DX: M62.838 Other muscle spasm (principal); M54.2 Cervicalgia; M25.511 Pain in right shoulder; X50.1XXA Overexertion from prolonged static or awkward postures, initial encounter; Y93.89 Activity, other specified; Y92.9 Unspecified place or not applicable
CPT/HCPCS: 70491; 71275; 72125; 72128; 80053; 84484; 85007; 85025; 93005; 96374; 96375; 99285; J1885; J3360; Q9967

== ENCOUNTER 2025-02-10 22:05 | Emergency (ER) | payer MEDICARE, SELFPAY ==
--- OUTSIDE RECORDS SUMMARY | 2024-06-28 12:00 | XMS_ITS ---
Author Organization [facility] [place] Address [address] [place] [address] Care Team Providers Care Roof Bolter Helper Name Role Phone CHENTE ALANIZ Unavailable [phone] JEDANTHONY TAYE Unavailable [phone] REASON FOR VISIT f/u Medications Medication SIG (Take, Route, Frequency, Duration) Notes Start Date End Date Status diazePAM 10 MG 1 tablet as needed Orally twice a day for 14 days 06/28/2024 Active Mounjaro 2.5 MG/0.5ML 2.5mg Subcutaneous weekly for 30 days 09/23/2022 Not-Taking ONE TOUCH ULTRA TEST STRIPS TEST STRIP USE ONE TEST STRIP TO CHECK SUGARS THREE TIME [id number] for 90 days Not-Taking Albendazole 200 MG 2 tablets Orally Twi ce a day for two days then repeat rx in two weeks for 4 days 05/08/2022 Not-Taking diazePAM 10 MG 1 tablet as needed Orally twice a day for 14 days 06/28/2024 Active Ibuprofen 800 MG 1 tablet with food o r milk as needed Orally every 8 hrs for 30 day(s) 01/22/2022 Not-Taking Mobic 7.5 MG 1 tablet Orally Once a day for 5 day(s) Not-Taking Levaquin 750 MG 1 tablet Orally Once a day for 5 day(s) Not-Taking OneTouch Delica Lancets 33G - USE DIRECTED for 30 Not-T aking Cyclobenzaprine HCl 10 MG 1 tablet as ne eded for muscle spasms of neck Orally twice a day for 7 days 06/23/2024 Not-Taking Toujeo Max SoloStar 300 UNIT/ML 50 units Subcutaneous daily for 45 days 05/26/2024 Active Dexcom G7 Sensor - change every 10days for 30 days 02/08/2024 Active Dexcom G7 Lock Technician - as directed for 365 days 02/08/2024 Active Medrol 4 MG 1 pack as directed Orally daily for 6 days 06/23/2024 Not-Taking Diflucan 200 MG 1 tablet Orally sue y for 10 days 06/19/2024 Not-Taking Omnipod 5 G7 Intro (Gen 5) - as directed for 30 days 02/08/2024 Active Toujeo Max SoloStar 300 UNIT/ML up to 100 units per day start at 20 units in evening and increase to keep glucose levels less [id number] Subcutaneous every evening for 30 days 07/22/2021 Active Fiasp 100 UNIT/ML up to 200 units per 2 days with omnipod omnipod every 2 days for 10 days 02/08/2024 Active Encounters Encounter Location Date Provider Diagnosis [facility] [address] [place] [address] 06/28/2024 GER ELLISON Type 2 diabetes mellitus with diabetic mononeuropathy E11.41 and Strain of muscle, fascia and tendon at neck level, initial encounter S16.1XXA Assessments Encounter Date Diagnosis (ICD Code) Assessment Notes Treatment Notes Treatment Clinical Notes Section Notes 06/28/2024 Type 2 diabetes mellitus with diabetic mononeuropathy (ICD-10 - E11.41) 06/28/2024 Strain of muscle, fascia and tendon at neck level, initial encounter (ICD-10 - S16.1XXA) Plan Of Treatment Medication Medication Name Sig Start Date Stop Date Notes diazePAM 10 MG 1 tablet as needed O rally twice a day for 14 days 06/28/2024 diazePAM 10 MG 1 tablet as needed O rally twice a day for 14 days 06/28/2024 Progress Notes * Ky ZAMORANODOB:1955 (70 yo M)Acc No.[id number]:06/28/2024 Progress Notes Patient: Ky JACOB Appointment Provider: Qing ELLISON APRN :1955 A ge:69 Y S ex:Male Date:06/28/2024 Address:[address] , [id number] Subjective: * Chief Complaints: * 1 . F/u. * Medical History: * Medications: T aking Toujeo Max SoloStar 300 UNIT/ML Solution Pen-injector up to 100 units per day start at 20 units in evening and increase to keep glucose levels less [id number] Subcutaneous every evening , Taking Omnipod 5 G7 Intro (Gen 5) - Kit as directed , Taking Fiasp 100 UNIT/ML Solution up to 200 units per 2 days with omnipod omnipod every 2 days , Taking Dexcom G7 Lock Technician - Device as directed , Taking Dexcom G7 Sensor - Miscellaneous change every 10days , Taking Toujeo Max SoloStar 300 UNIT/ML Solution Pen-injector 50 units Subcutaneous daily , Not-Taking Diflucan 200 MG Tablet 1 tablet Orally daily , Not-Taking Medrol 4 MG Tablet Therapy Pack 1 pack as directed Orally daily , Not-Taking Cyclobenzaprine HCl 10 MG Tablet 1 tablet as needed for muscle spasms of neck Orally twice a day , Not-Taking OneTouch Delica Lancets 33G - Miscellaneous USE DIRECTED , Not-Taking Levaquin 750 MG Tablet 1 tablet Orally Once a day , Not-Taking Mobic 7.5 MG Tablet 1 tablet Orally Once a day , Not- Taking Ibuprofen 800 MG Tablet 1 tablet with food or milk as needed Orally every 8 hrs , Not-Taking Albendazole 200 MG Tablet 2 tablets Orally Twice a day for two days then repeat rx in two weeks , Not-Taking ONE TOUCH ULTRA TEST STRIPS TEST STRIP STRIPS USE ONE TEST STRIP TO CHECK SUGARS THREE TIME [id number] , Not-Taking Mounjaro 2.5 MG/0.5ML Solution Pen-injector 2.5mg Subcutaneous weekly Objective: * Vitals: Assessment: * Assessment: 1. T ype 2 diabetes mellitus with diabetic mononeuropathy - E11.41 2 . S train of muscle, fascia and tendon at neck level, initial encounter - S16.1XXA Plan: * Treatment: * * Electronic signature of ETHEL ELLISON APRN on 02/11/2025 at 12:07 AM EDT Sign off status: Pending * Appointment Provider: Qing ELLISON APRN Date: 1 Generated for Printing/Faxing/eTransmitting on: 0 02/11/2025 12:07 AM EDT
[2025-02-10 23:25] VITALS: BP 135/81; PULSE 88; RESP 14; TEMP 36.8; O2SAT 96; BMI 13.4
--- NOTE | 2025-02-10 23:32 | XR_ITS ---
PROCEDURE INFORMATION: Exam: XR Right Elbow Exam date and time: 02/10/2025 11:48 PM Age: 70 years old Clinical indication: Pain; Elbow; Right; Additional info: Ttp swelling redness joint/olecranon w/ limite rom TECHNIQUE: Imaging protocol: Radiologic exam of the right elbow. Views: 3 or more views. COMPARISON: CR XR HAND RT MIN 3V 12/03/2020 2:05 PM FINDINGS: Bones/joints: No fracture. No dislocation. No effusion. Soft tissues: Soft tissue prominence over olecranon. IMPRESSION: 1. Soft tissue prominence over the olecranon suspicious for olecranon bursitis. 2. No acute radiographic osseous findings.
[2025-02-10 23:51] LABS: Basophils # 0.1 K/mm3 (0-0.2); Basophils % 0.6 % (0.1-2.0); Eosinophils # 0.3 Kmm3 (0.0-0.4); Eosinophils % 2.3 % (0.1-12.0); Hematocrit 45.2 % (42.0-52.0); Hemoglobin 15.4 g/dL (14.1-18.0); Immature Granulocytes # 0.06 10^3uL; Immature Granulocytes % 0.4 %; Lymphocytes # 1.9 K/mm3 (0.7-4.5); Mean Corpuscular HGB Conc 34.1 g/dL (31.8-35.4); Mean Corpuscular Volume 91.1 fl (80-94); Mean Platelet Volume 10.8 fl (7.4-10.4); Monocytes # 1.5 K/mm3 (0.1-1.0); Monocytes % 10.6 % (1.7-9.3); Neutrophils # 10.4 K/mm3 (1.8-7.8); Neutrophils % 73.1 % (37.0-80.0); Nucleated Red Blood Cells # 0 10^3/uL; Nucleated Red Blood Cells % 0 %; Platelet Count 225 K/mm3 (142-424); Red Blood Count 4.96 M/mm3 (4.60-6.20); Red Cell Distribution Width 13.3 % (11.5-17.5); Red Cell Distribution Width-SD 44.8 fL; White Blood Count 14.3 K/mm3 (4.8-10.8)
[2025-02-11] LABS: Alanine Aminotransferase 16 U/L (12-78); Albumin Level 4.7 g/dl (3.5-5.0); Albumin/Globulin Ratio 1.2 (1.1-1.8); Alkaline Phosphatase 78 U/L (38-126); Anion Gap 10.4 mEq/L (5-15); Aspartate Amino Transferase 22 U/L (17-59); Bilirubin,Total 0.6 mg/dl (0.2-1.3); Blood Urea Nitrogen 21 mg/dl (9-20); Calcium 9.5 mg/dl (8.4-10.2); Carbon Dioxide 27 mmol/L (22.0-30.0); Chloride 104 mmol/L (98-107); Creatinine Clearance Estimated 48 mL/min (50-200); Estimated Glomerular Filt Rate 84 ml/min (>60); GFR (African American) 102 ML/MIN (>60); Globulin 3.9 g/dL (1.3-3.2); Glucose 159 mg/dl (74-100); Potassium 4.4 mmoL/L (3.5-5.1); Sodium 137 mmol/L (136-145); Total Protein,Serum 8.6 g/dl (6.3-8.2)
--- NOTE | 2025-02-11 | ED_ITS ---
Discharge Plan Disposition Patient Disposition: Home, Self-Care Condition: Good Prescriptions Prescriptions: New sulfamethoxazole-trimethoprim 800-160 mg tablet 1 tab PO BID 10 Days Qty: 20 0RF No Action oxycodone-acetaminophen [Percocet] 10-325 mg tablet 1 tab PO Q6H PRN (Reason: pain) Qty: 15 0RF tamsulosin [Flomax] 0.4 mg capsule 0.4 mg PO DAILY Qty: 10 0RF ketorolac 10 mg tablet 10 mg PO Q8H PRN (Reason: pain) 3 Days Qty: 12 0RF methocarbamol 750 mg tablet 750 mg PO Q8H PRN (Reason: pain) Qty: 20 0RF Referrals Follow up/Referrals: Maurice Cochran DO [Staff Physician, Orthopedics] - See instructions Referral Note: Septic bursitis right elbow Brent Maharaj [Primary Care Provider, Medical] - See instructions Activity Restrictions/Add. Instructions Additional Instructions/Restrictions: You were evaluated in the ER and are believed to be appropriate for discharge at this time. Take the prescribed antibiotics as directed, do not skip doses, do not stop taking them early. Take Tylenol and ibuprofen if needed for pain, do not exceed the recommended dose on the bottle. Drink water and eat a small snack each time you take these medications to avoid side effects. Call Dr. Cochran's office Wednesday for outpatient follow-up for further evaluation. Make an appointment with your primary care doctor for reevaluation as well. Return to the ER with any new, worsening, or otherwise concerning symptoms. Clinical Impressions Clinical Impression: Septic olecranon bursitis Qualifiers: Laterality: right Qualified Code(s): M71.121 - Other infective bursitis, right elbow Print Language Print Language: Bangladeshi Discharge ED Provider: Spencer Yanes General Adult HPI General Chief complaint: Extremity Injury, Upper Stated complaint: right elbow swelling and painful Time Seen by Provider: 02/10/25 23:30 Mode of Arrival: Ambulatory Source of Information: Patient Description of Symptoms (Recalled from ER Triage Doc. by RN): Pt presents for eval of right elbow swelling that began today. Pt reports warm to touch, denies injuries. Pt reports approx 1 week ago patient was outside doing lawn work and thought may have gotten bite by insect. Pt reports attempting to pop area with no relief from symptoms. History of Present Illness HPI narrative: 70-year-old male presents to the ER for complaints of right elbow swelling that began today. He reports no injury but thought maybe a week ago he may have gotten a bug bite. He reports the swelling and pain began in the last 24 hours, it is warm to the touch. It has expanded slightly down the arm. He reports maximal pain over the point of the elbow. No history of gout, no history of surgery on this elbow or hardware. No history of septic joint. No fevers or chills, no numbness, tingling, or weakness, no other associated symptoms. Patient reports he can fully move the elbow but it causes pain especially with flexion. Patient does report that every night before bed he lays on his stomach with his arms under him while playing on his phone so he has repetitive pressure on the elbow. He has had 1 episode of swelling in this elbow once before but it only lasted a day. Related Data Previous Rx's ?Medication ?Instructions ?Recorded oxycodone-acetaminophen 10 mg-325 1 tab PO Q6H PRN lindsay n #15 tabs 01/22/23 mg tablet (Percocet) tamsulosin 0.4 mg capsule (Flomax) 0.4 mg PO DAILY #10 caps 01/22/23 ketorolac 10 mg tablet 10 mg PO Q8H PRN pain 3 days #12 06/23/24 tabs methocarbamol 750 mg tablet 750 mg PO Q8H PRN pain #20 tabs 06/23/24 sulfamethoxazole 800 1 tab PO BID 10 days #20 tab s 02/11/25 mg-trimethoprim 160 mg tablet Allergies Allergy/AdvReac Type Severity Reaction Status Date / Time No Known Allergies Allergy Verified 12/03/20 14:22 [facility] Disclaimer: The information contained in this section may have been updated after the patient was seen, as this information can be updated by other users. Social History Smoking Status: Current every day smoker alcohol intake: never current occupational status: other Travel in the last 8 weeks?: None Have you lived/traveled outside US in past 30 days?: No Contact w/someone who lives/traveled outside US past 30 days?: No Exposure to someone with infectious disease in past 14 days?: No Do you have a fever (greater than 100.4 F or 38 C)?: No Have you tested positive for COVID-19?: No Exposed to someone with COVID-19 in past 14 days?: No Do you have a sore throat?: No Do you have a cough?: No Do you have any weakness?: No Do you have any diarrhea?: No Are you experiencing any unusual bleeding?: No Do you have any muscle aches/pain?: No Do you have any abdominal pain?: No Are you experiencing loss of taste or smell?: No Other Medical History Have you received the Pneumonia Vaccine: No ROS Obtained: Yes Systems reviewed as appropriate & no additional complaints except as documented Per HPI Physical Exam General General appearance: alert and in no apparent distress Head Head exam: atraumatic and normocephalic Eye Eye exam: Present PERRL and EOMI ENT ENT exam: Present mucous membranes moist Neck Neck exam: Present normal inspection and full ROM Chest Chest inspection: Present symmetric chest wall rise Respiratory Respiratory exam: Present normal lung sounds bilaterally; Absent respiratory distress, wheezes or stridor Cardiovascular Cardiovascular exam: Present regular rate and normal rhythm Abdominal Exam Abdominal exam: Present soft; Absent distention or tenderness Extremities Exam Extremities exam: Present full ROM (Patient has full flexion extension though he has pain with full flexion), tenderness (Right elbow maximal over olecranon), normal capillary refill, joint swelling (Right elbow over the olecranon with associated erythema and tenderness; no wound) and other (Neurovascularly intact) Neurological Exam Neurological exam: Present alert and oriented X3; Absent motor sensory deficit Psychiatric Psychiatric exam: Present normal affect and normal mood Skin Skin exam: Present warm and dry Medical Decision Making Medical Records Medical records reviewed: Yes I reviewed the patient's medical records. Screening: Per USPSTF and CDC recommendations, given the prevalence of disease in our region, it is our hospital?s policy to screen for HIV and viral Hepatitis for all patients aged 18 and over and those with ongoing risk factors. Nico Inquiry Pt receiving controlled substance: No Vital Signs: 02/10/25 23:25 02/11/25 00:29 Temperature 98.3 F Temperature Source Oral Pulse Rate 88 Pulse Rate [Radial] 88 Respiratory Rate 14 Blood Pressure 120/69 Blood Pressure [Left Arm] 135/81 Blood Pressure Mean [Left Arm] 99 Blood Pressure Position [Left Arm] Sitting 02 Sat by Pulse Oximetry 96 96 Oxygen Delivery Method Room Air Lab Data Lab Results 02/10/25 23:44: WBC 14.3 H, RBC 4.96, Hgb 15.4, Hct 45.2, MCV 91.1, MCH 31.0, MCHC 34.1, RDW 13.3, Plt Count 225, MPV 10.8 H, Neut % (Auto) 73.1, Lymph % (Auto) 13.0, [place] % (Auto) 10.6 H, Eos % (Auto) 2.3, Baso % (Auto) 0.6, Neut # (Auto) 10.4 H, Lymph # (Auto) 1.9, [place] # (Auto) 1.5 H, Eos # (Auto) 0.3, Baso # (Auto) 0.1, Sodium 137, Potassium 4.4, Chloride 104, Carbon Dioxide 27, Anion Gap 10.4, BUN 21 H, Creatinine 0.90, Estimated Creat Clear 48, Estimated GFR 84, Est GFR ( Amer) 102, Glucose 159 H, Calcium 9.5, Total Bilirubin 0.6, AST 22, ALT 16, Alkaline Phosphatase 78, C-Reactive Protein 14.2 H, Total Protein 8.6 H, Albumin 4.7, Globulin 3.9 H, Albumin/Globulin Ratio 1.2 02/10/25 23:44 02/10/25 23:44 Orders (Tests/Meds): ED MEDICATIONS Discontinued Medications Generic Name Dose Route Start Last Admin Trade Name Freq PRN Reason Stop Dose Admin Trimethoprim/Sulfamethoxazole 1 each 02/11/25 01:08 02/11/25 01:11 Sulfa/Trimethoprim 1 Tablet PO 02/11/25 01:09 1 each ONCE ONE Administration ORDERS Category Date Time Status Elbow XR right minimum 3 views [XR elbow RT min 3V] Exams 02/10/25 23:32 Completed Stat POCUS Point of Care (ER Only) Stat Exams 02/10/25 23:38 Completed CBC w/Auto Diff [Complete Blood Count Auto Diff] Stat Lab 02/10/25 23:44 Completed CMP [Comprehensive Metabolic Panel] Stat Lab 02/10/25 23:44 Completed CRP [C-Reactive Protein] Stat Lab 02/10/25 23:44 Completed ESR [Erythrocyte Sedimentation Rate] Stat Lab 02/10/25 23:44 Received Medical Decision Narrative: In summary, this 70-year-old male presents to the emergency department today with right elbow pain, redness, swelling. On initial evaluation patient is hemodynamically stable, afebrile, patient has swelling and redness of the right elbow with maximum tenderness over the olecranon as well as maximum swelling in this area, range of motion is full though he has pain with full flexion, neurovascularly intact. Differential diagnosis includes but is not limited to septic bursitis, cellulitis, abscess, fracture, joint effusion, considered septic arthritis but have lower suspicion for this since patient does not have pain with full range of motion except for maximal flexion and he is able to fully extend the elbow. Based on these concerns, I ordered serum labs, x-ray, [id number] ultrasound. Labs demonstrate mild leukocytosis no anemia, CMP nonactionable, CRP slightly elevated at 14.2 which is nonspecific. With elevation inflammatory markers and mild leukocytosis this increases concern for infection however x-ray personally interpreted does not demonstrate joint effusion and there is swelling over the olecranon consistent with bursitis. [id number] ultrasound personally performed and interpreted demonstrates cellulitis in this area as well as thickened, loculated fluid collection that I do not believe is amenable to drainage at this time. 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 Patient was referred to Dr. Cochran for outpatient follow-up. He was given instructions on medication use, symptomatic management, follow-up, and strict return precautions for the ER including explicit return precautions regarding the potential development of septic arthritis though I do not believe that is present at this time. Patient and at bedside indicated understanding and the patient was discharged in stable condition. Critical Care Critical Care Time Critical Care Time: No
[2025-02-11 00:05] LABS: C-Reactive Protein 14.2 mg/L (0-4)
--- OUTSIDE RECORDS SUMMARY | 2025-02-11 00:07 | XMS_ITS | Clinical Summary ---
Author Organization [employer] Address [address] [place] [address] Care Team Providers Care Control Clerk [employer] Bever[employer] Name Role Phone Vandana Blake NP Primary Care Provider [phone] Allergies Active Allergy Reactions Criticality Noted Date Comments Atorvastatin Low 06/29/2024 Leg pain Rosuvastatin Low 06/29/2024 Leg pain Medications insulin glargine U-300 conc (Toujeo Max U-300 SoloStar) 300 unit/mL (3 mL) syringe Inject subcutaneously. Active ketorolac (TORADOL) 10 mg tablet Take 1 tablet (10 mg total) by mouth every 6 (six) hours as needed for pain. Active methocarbamoL (ROBAXIN) 750 MG tablet Take 1 tablet (750 mg total) by mouth 4 (four) times daily as needed for muscle spasms. Active evolocumab (REPATHA) 140 mg/mL pen injectorIndication s:atherosclerotic cardiovascular disease,myocardial infarction prevention,prevent ion of cerebrovascular accident,pancreast itis secondary to statins LDL >100 Inject 140 mg subcutaneously every 14 (fourteen) days. 2 mL 12 06/29/20 24 025 Active carvediloL (Coreg) 6.25 MG tabletIndications: Primary hypertension,Mixed hyperlipidemia Take 1 tablet (6.25 mg total) by mouth 2 (two) times daily. 60 tablet 11 06/29/20 24 025 Active Active Problems Problem Noted Date Diagnosed Date HLD (hyperlipidemia) 07/03/2024 HTN (hypertension) 07/03/2024 Type 2 diabetes mellitus wit hout complication, with long-term current use of insulin 06/29/2024 Coronary artery calcification seen on CAT scan 1 Family History Medical History Relation Name Comments Bladder Cancer Father Coronary artery disease Father Diabetes Father Heart attack Father Hyperlipidemia Father Atrial fibrillation Mother Hyperlipidemia Mother Hypertension Mother Heart disease Paternal Grandfather Diabetes Paternal Grandmother Heart disease Son Relation Name Status Comments Father Mother Paternal Grandfather Paternal Grandmother Son Alive Social History Tobacco Use Types Packs/Day Years Used Date Smoking Tobacco: Every Day Cigarettes Smokeless Tobacco: Never Tobacco Cessation:Ready to Q uit: Not Asked; Counseling Given: Not Answered Alcohol Use Standard Drinks/Week Comments Never 0 (1 standard drink = 0.6 oz pur e alcohol) Interpersonal Safety Answer Date Record ed Family or friends hurt you Not on file 06/26 Family or friends insult you Not on file Family or friends threaten you Not on file 1 Family or friends scream or curse at you Not on file 06/26/2024 Food Insecurity Answer Date Recorded Food run out past 12 months Not on file 06/07 Food did not last past 12 months Not on file 06/26/2024 Employment Answer Date Recorded Help finding and keeping a job Not on file 1 Family and Community Support Answer Juan e Recorded Help with Day to Day Activities Not on file 06/26/2024 Feeling Lonely or Isolated Not on file 06/26 Educational Attainment Answer Date Nik rded Speak language other than [place] at home Not on file 06/26/2024 Want help with school or training Not on file 06/26/2024 Depression Answer Date Recorded PHQ-2 Risk Not on file 06/26/2024 Disabilities Answer Date Recorded Difficulty concentrating Not on file 024 Difficulty doing errands alone Not on file 1 Substance Use Answer Date Recorded Used prescription meds for non-medical reasons N ot on file 06/26/2024 Used illegal drugs past 12 months Not on file 06/26/2024 Sex and Gender Information Value Date Recorded Sex Assigned at Not on file Legal Sex Male 1:42 PM CDT Gender Identity Not on file Sexual Orientation Not on file Last Filed Vital Signs Vital Sign Reading Time Taken Comments Blood Pressure 140/90 06/29/2024 10:31 AM EDT Pulse 100 06/29/2024 10:31 AM EDT Temperature - - Respiratory Rate - - Oxygen Saturation 99% 06/29/2024 10:31 AM EDT Inhaled Oxygen Concentration - - Weight 93.2 kg (205 lb 6.4 oz) 06/29/2024 10:31 AM EDT Height 188 cm (6' 2 ) 06/29/2024 10:31 AM EDT Body Mass Index 26.37 06/29/2024 10:31 AM EDT Plan of Treatment Health Maintenance Due Date Last Done Comments CT Colonography 1957 Colonoscopy 1957 Colorectal Cancer Screening 1957 Diabetic Kidney Health Evaluation (KED) 1957 FOBT/FIT 1957 Fit-DNA (Cologuard) 1957 Sigmoidoscopy 1957 Diabetic Eye Exam 1967 Diabetic foot exam 1967 Depression Screening (12+) 1969 Tobacco Cessation Counseling and Screening (12+) 02/10 Hepatitis C Screening 1975 DTAP/TDAP/TD VACCINES (1 - Tdap) 02/11/1976 Pneumococcal 50+ years (1 of 2 - PCV) 02/11/1976 Shingles Vaccine (Zoster) (1 of 2) 2007 Respiratory Syncytial Virus (RSV) Adult or (1 - Risk 60-74 years 1-dose series) 2017 Abdominal Aortic Aneurysm (AAA) Screen 2022 Medicare Initial AWV [id number] 02/05/2023 COVID-19 VACCINE ( - season) 2024 Hemoglobin A1C 06/29/2024 Falls Risk Screening 09/06/2024 Influenza Vaccine (Season Ended) 2025 Insurance [id number] (Home) [address] [place] [id number] [facility] MEDICARE PPO Care Teams Control Clerk Food And Beverage Relationship Specialty Start Date End Date Vandana Blake NP [address] [place] [address] PCP - General Acute Care Nurse Practitioner 06/29/24
--- OUTSIDE RECORDS SUMMARY | 2025-02-11 00:07 | XMS_ITS | Referral Summary ---
Author Organization [employer] Address [address] [place] [address] Care Team Providers Care Kiln Furniture Saw Tender Name Role Phone Vandana Blake NP Primary Care Provider [phone] Allergies Active Allergy Reactions Criticality Noted Date [...] artery calcification seen on CAT scan 1 Social History Tobacco Use Types Packs/Day Years [...] Date Nik rded Speak language other than [place] at home Not on file 06/26/2024 Want [...] 06/29/2024 10:31 AM EDT Plan of Treatment Not on file Insurance [employer] MEDICARE PPO Care Teams Kiln Furniture Saw Tender Relationship Specialty Start Date End Date Vandana Blake NP [facility] [place] [address] PCP - General Acute Care Nurse Practitioner 06/29/24
--- OUTSIDE RECORDS SUMMARY | 2025-02-11 00:08 | XMS_ITS | Patient Health Record ---
Author Organization [facility] [place] Address [address] [address] Care Team Providers Care Fiberglass Quality Technician Name Role Phone DENA ALANIZAlishaANNE-MARIEQUINTEN Unavailable [phone] GER ELLISON Unavailable [phone] Allergies Allergen (clinical drug ingredient) Drug/Non Drug Allergy documented on EMR Reaction Allergy Type Onset Date Status Substance with 0-jxfienq-4-methylgl utaryl-coenzyme A reductase inhibitor mechanism of action (substance) statins (uncoded) does not tolerate Allergy Active Results Component Value Reference Range Notes Michelle Reviewed date:03/17/2024 11:45:56 AM Interpretation:Negative Performing Lab: Notes/Report: Negative Ultrasound : Carotid Doppler Bilateral Reviewed date:07/20/2024 03:01:22 PM Interpretation: Performing Lab: Notes/Report: Reason For Referral Reason dr pitts. Diagnosis 1 Dizziness (R42) Referral Organization [facility] [place] Referring Provider First Name GER Referring Provider Last Name TERRA Referring Provider Speciality Nurse Prac titioner Referred Provider Specialty Cardiology General Notes LINCOLN DOMINGUEZ 06/19 02:10:50 PM > DR PITTS, [address] [place] [address] P: [phone] F: [phone] (FAXED), Manan Matos 06/27/2024 01:26:33 PM > appt was today and pt did not show up and they cant get ahold of pt. Referral Priority Routine Diagnosis 1 Neck pain (M54.2) Referral Organization [facility] [place] Referring Provider First Name GER Referring Provider Last Name TERRA Referring Provider Speciality Nurse Prac titioner Referred Provider [facility] Referred Provider Specialty Orthopedic S urgery General Notes LINCOLN DOMINGUEZ 06/30 01:05:28 PM > FAXED Referral Priority Routine Referral Appointment Date 07/04/2024 Medications Medication SIG (Take, Route, Frequency, Duration) Notes Start Date End Date Status Benzonatate 200 MG 1 capsule as needed Orally Three times a day for 30 days 09/20/2024 Active Nitroglycerin 0.4 MG 1 tablet under the tongue and allow to dissolve as needed. Take every 5 minutes up to 3 times if chest pain persists Sublingual Three times a day for 30 days 08/23/2024 Active Omnipod 5 G7 Intro (Gen 5) - as directed for 30 days 02/08/2024 Active Medrol 4 MG 1 pack as directed Orally daily for 6 days 06/23/2024 Not-Taking Toujeo Max SoloStar 300 UNIT/ML up to 100 units per day start at 20 units in evening and increase to keep glucose levels less [id number] Subcutaneous every evening for 30 days 07/22/2021 Active Cyclobenzaprine HCl 10 MG 1 tablet as ne eded for muscle spasms of neck Orally twice a day for 7 days 06/23/2024 Not-Taking Acyclovir 400 MG 1 tablet Orally four times a day for 10 days 07/17/2024 Active Lidocaine 5 % 2 patches along the L5 dermatome right leg Externally Once a day for 30 days 07/26/2024 Active Diflucan 200 MG 1 tablet Orally sue y for 10 days 06/19/2024 Not-Taking diazePAM 10 MG 1 tablet as needed Orally twice a day for 14 days 06/28/2024 Not-Taking ONE TOUCH ULTRA TEST STRIPS TEST STRIP USE ONE TEST STRIP TO CHECK SUGARS THREE TIME DLAPPI86.65 for 90 days Not-Taking Ibuprofen 800 MG 1 tablet with food o r milk as needed Orally every 8 hrs for 30 day(s) 01/22/2022 Active diazePAM 10 MG 1 tablet as needed Orally twice a day for 14 days 06/28/2024 Not-Taking Mounjaro 2.5 MG/0.5ML 2.5mg Subcutaneous weekly for 30 days 09/23/2022 Not-Taking Dexcom G7 Sensor - change every 10days for 30 days 02/08/2024 Active Aquilino Briseno SoloStar 300 UNIT/ML 50 units Subcutaneous daily for 45 days 05/26/2024 Active Albendazole 200 MG 2 tablets Orally Twi ce a day for two days then repeat rx in two weeks for 4 days 05/08/2022 Not-Taking Fiasp 100 UNIT/ML up to 200 units per 2 days with omnipod omnipod every 2 days for 10 days 02/08/2024 Active Levaquin 750 MG 1 tablet Orally Once a day for 5 day(s) Not-Taking Dexcom G7 Medical Driver - as directed for 365 days 02/08/2024 Active Mobic 7.5 MG 1 tablet Orally Once a day for 5 day(s) Not-Taking OneTouch Delica Lancets 33G - USE DIRECTED for 30 Not-T aking Nitroglycerin 0.4 MG 1 tablet under the tongue and allow to dissolve as needed. Take every 5 minutes up to 3 times if chest pain persists Sublingual Three times a day for 30 day(s) 08/23/2024 Active Social History Tobacco Use: Social History Observation Description Date Details (start date - stop date) Current Smoker NA - NA Tobacco Use/Smoking Question Answer Notes Are you a current smoker How often do you smoke cigarettes? every day How many cigarettes a day do you smoke? 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) Active confirmed Problem Hyperglycemia due to type 2 diabetes mellitus (575785320983023) Type 2 diabetes mellitus with hyperglycemia (E11.65) Active confirmed Problem Mixed hyperlipidemia (444641528) Mixed hyperlipidemia (E78.2) Active confirmed Problem Hyperlipidemia (61190241) Hyperlipidemia, unspecified (E78.5) Active confirmed Problem Tobacco user (723132299) Nicotine dependence, cigarettes, uncomplicated (F17.210) Active confirmed Problem Cardiac arrhythmia (574200354) Cardiac arrhythmia, unspecified (I49.9) Active confirmed Problem Finding of serum tumor marker level (964433599) Other abnormal tumor markers (R97.8) Active confirmed Problem Essential hypertension (35682124) Essential hypertension (I10) Active confirmed Problem Neuropathy (154042296) Neuropathy (G62.9) Active confirmed Problem Neck pain (60701495) Neck pain (M54.2) Active confirmed Problem Screening for colon cancer (608548352) Screening for colon cancer (Z12.11) Active confirmed Problem Coronary arteriosclerosis (71128300) Coronary arteriosclerosis (I25.10) Active confirmed Problem Chronic pancreatitis (919904240) Chronic pancreatitis, unspecified pancreatitis type (K86.1) Active confirmed Problem Type II diabetes mellitus without complication (682375067) Controlled type 2 diabetes mellitus without complication, unspecified group home insulin use status (E11.9) Active confirmed Problem Tobacco dependence (85860098) Tobacco dependence (F17.200) Active confirmed Vital Signs Heart Rate 88 /min 07/20/2024 Temperature 98.1 degrees Fahrenheit 07/20/2024 Respiratory Rate 16 /min 07/20/2024 Oximetry 99 % 07/20/2024 Blood pressure diastolic 88 mm Hg 07/20/2024 Height 74 in 07/20/2024 Blood pressure systolic 138 mm Hg 07/20/2024 Weight 206 lbs 07/20/2024 BMI 26.45 kg/m2 07/20/2024 Encounters Encounter Location Date Provider Diagnosis [facility] [place] [place] [address] 06/19/2024 GER ELLSION Encounter for genera l adult medical examination with abnormal findings Z00.01 ; Body mass index [BMI] 26.0-26.9, adult Z68.26 ; Type 2 diabetes mellitus with diabetic mononeuropathy E11.41 ; Screening for prostate cancer Z12.5 ; Screening for colon cancer Z12.11 ; Rash R21 ; Dizziness R42 ; Elevated blood pressure reading R03.0 and Nicotine dependence, cigarettes, uncomplicated F17.210 [facility] [place] [address] [place] [address] 07/20/2024 GER ELLISON Dizziness R42 ; Herp es zoster without complication B02.9 ; Rash R21 ; Nicotine dependence, cigarettes, uncomplicated F17.210 ; Type 2 diabetes mellitus with hyperglycemia E11.65 ; Coronary arteriosclerosis I25.10 and Mixed hyperlipidemia E78.2 [facility] [place] [address] [place] [address] 03/08/2024 GER ELLISON [facility] [place] [address] [place] [address] 05/26/2024 GER ELLISON [facility] [place] [address] [place] [address] 06/23/2024 GER ELLISON [facility] [place] [address] [place] [address] 06/23/2024 GER JEDJASVIR [facility] [place] [address] [place] [address] 07/17/2024 GER ELLISON [facility] [place] [address] [place] [address] 07/26/2024 GER TERRA Postherpetic polyneuropathy B02.23 [facility] [place] [address] [place] [address] 08/21/2024 GERJigar ELLISON [facility] [place] [address] [place] [address] 08/23/2024 GEREDIN ELLISON [facility] [place] [address] [place] [address] 08/23/2024 GER ELLISON [facility] [place] [address] [place] [address] 09/20/2024 GEREDIN ADKINSJASVIR Assessments Encounter Date Diagnosis (ICD Code) Assessment Notes Treatment Notes Treatment Clinical Notes Section Notes 06/19/2024 Encounter for general adult medical examination with abnormal findings (ICD-10 - Z00.01) 06/19/2024 Body mass index [BMI] 26.0-26.9, adult (ICD-10 - Z68.26) 07/20/2024 Herpes zoster without complication (ICD-10 - B02.9) r leg wraps around leg approx l3-5 dermatome. 07/20/2024 Dizziness (ICD-10 - R42) 07/26/2024 Postherpetic polyneuropathy (ICD-10 - B02.23) p 07/20/2024 Rash (ICD-10 - R21) 06/19/2024 Type 2 diabetes mellitus with diabetic mononeuropathy (ICD-10 - E11.41) 06/19/2024 Screening for prostate cancer (ICD-10 - Z12.5) wnl summer 202307/20/2024 Nicotine dependence, cigarettes, uncomplicated (ICD-10 - F17.210) smoking cessation info offered pt contemplating. 07/20/2024 Type 2 diabetes mellitus with hyperglycemia (ICD-10 - E11.65) on toujeo. 06/19/2024 Screening for colon cancer (ICD-10 - Z12.11) neg cologard summer 202306/19/2024 Rash (ICD-10 - R21) improved. 07/20/2024 Coronary arteriosclerosis (ICD-10 - I25.10) now on repatha and has fu w cardiology. 07/20/2024 Mixed hyperlipidemia (ICD-10 - E78.2) on repatha. 06/19/2024 Dizziness (ICD-10 - R42) 06/19/2024 Elevated blood pressure reading (ICD-10 - R03.0) pt doesnt like coming to doctor apt. will recheck bp at [facility] and we will fu at rtc. in 3 mo. 06/19/2024 Nicotine dependence, cigarettes, uncomplicated (ICD-10 - F17.210) Advised patient to quit smoking Smoking cessation counselling given ld ct scan screen lung ca neg summer 2023 Plan Of Treatment Pending Test Test Name Order Date Hemoglobin A1c 10/18/2017 TSH 06/19/2024 CBC With Differential/Platelet 4 Microalb/Creat Ratio, Randm Ur 4 Microalb/Creat Ratio, Rand Ur 8 Lipid Panel 06/19/2024 Comp. Metabolic Panel (14) 06/19/2024 SARS-Cov-2 Antigen 12/03/2021 Insurance Providers Payer Name Payer Address Payer Phone Subscriber Number Group Number Insured Name Patient Relationship to Insured Coverage Start Date Coverage End Date [employer] [address] [address] [place] [address] [id number] ZAMORANO Self - patient is the insured Medical (General) History Medical History History ICD Code diabetes Hospitalization History Reason Date(Month/Year) acute pancreatitis
[2025-02-11 00:29] VITALS: BP 120/69; PULSE 88; O2SAT 96
[2025-02-11] MEDS: SULFA/TRIMETHOPRIM 1 TABLET 1 EACH PO (01:11)
[2025-02-11 01:19] VITALS: BP 120/69; PULSE 102; RESP 14; TEMP 37.2; O2SAT 97
[2025-02-11 01:37] LABS: Erythrocyte Sedimentation Rate 5 mm/hr (0-20)
== END 2025-02-11 01:21 | disposition home or self-care (01) ==
PROVIDERS: Emergency Medicine; Emergency Provider Student in an Organized Health Care Education/Training Program; PCP Internal Medicine
DX: M71.121 Other infective bursitis, right elbow (principal); M25.521 Pain in right elbow; F17.210 Nicotine dependence, cigarettes, uncomplicated
CPT/HCPCS: 73080; 80053; 85025; 85651; 86140; 99283